=== PATIENT | female | born 1970 | race African-American/Black ===

== ENCOUNTER 2022-07-02 11:28 | Emergency (ER) | payer OTHER ==
[2022-07-02 12:37] VITALS: BP 142/74; PULSE 88; RESP 17; TEMP 98.5; BMI 43.5
[2022-07-02] MEDS ORDERED: SODIUM CHLORIDE 0.9% 500 ML INFUS.BAG IV ONE (13:00)
[2022-07-02 16:04] LABS: HEMATOCRIT 35.1 % (32.4-45.2); HEMOGLOBIN 11.6 GM/dL (10.7-15.3); MCH 31.1 pg (25.7-33.7); MEAN CELL VOLUME 94.3 fl (80-96); PLATELET COUNT 372 10^3/uL (134-434); RBC 3.73 M/mm3 (3.60-5.2); RDW 13.1 % (11.6-15.6); WHITE BLOOD COUNT 15.6 K/mm3 (4.0-10.0)
[2022-07-02 16:23] LABS: PH,URINE 5.5 (5.0-8.0); URINE APPEARANCE CLEAR; URINE BILIRUBIN NEGATIVE (NEGATIVE); URINE COLOR YELLOW; URINE GLUCOSE (UA) 3+ (NEGATIVE); URINE KETONE 1+ (NEGATIVE); URINE LEUK ESTERASE NEGATIVE (NEGATIVE); URINE NITRITE NEGATIVE (NEGATIVE); URINE PROTEIN NEGATIVE (NEGATIVE); URINE UROBILINOGEN 0.2 mg/dL (0.2-1.0)
[2022-07-02 16:29] LABS: CALCIUM 9.4 mg/dL (8.5-10.1)
[2022-07-02 16:30] LABS: ALBUMIN 4.1 g/dl (3.4-5.0)
[2022-07-02 16:34] LABS: BILIRUBIN,TOTAL 0.4 mg/dL (0.2-1); TOT PROT 7.6 g/dl (6.4-8.2)
[2022-07-02 18:08] LABS: ANISOCYTOSIS 0; MACROCYTOSIS 0
== END 2022-07-02 18:00 | disposition home or self-care (01) ==
LOC: JER 11:28
DX: R73.9 Hyperglycemia, unspecified (principal)
CPT/HCPCS: 0241U-QW; 36415; 80053; 81003; 82010; 82962; 85025; 87086; 87186; 93005; 93010; 99284-25